=== PATIENT | female | born 1955 | race Caucasian/White ===

== ENCOUNTER 2017-09-18 11:48 | Observation (INO) | payer OTHER ==
[2017-09-18] VITALS (10 sets, daily range): BP systolic 111–162; BP diastolic 57–94; PULSE 54–100; RESP 16–20; TEMP 97.6–98.2; O2SAT 95–99
[~2017-09-18] VITALS: Ht 172.7 cm; Wt 110.0 kg
[~2017-09-18 11:48] MED LIST: OXYC-360 PO; Z.0.NO CURRENT MEDS
[2017-09-18] MEDS ORDERED: ASPIRIN 325 MG TAB PO ONE (12:15)
--- NOTE | 2017-09-18 12:17 | PD ---
HPI Chief Complaint: Numbness/Tingling Time Seen by Provider: 12:05 Travel History International Travel<30 days: No Contact w/Intl Traveler<30days: No Traveled to known affect area: No History of Present Illness HPI The patient was seen and examined in the presence of the nurse. This patient has been having intermittent spells of left upper chest tightness and discomfort for about one week. Symptoms come and go. Duration is about 15 minutes. She is currently chest pain-free. Severity is moderate. She denies personal history of cardiac disease. She had a spell of lightheadedness today while shopping at [employer]. There was no syncope. No vertigo or headache. Symptoms had no alleviating factors. No Exacerbating factors. She takes blood pressure medication and has family history of cardiac disease but no personal history. Never had stress testing. PFSH Past Medical History Cancer: No Cardiovascular Problems: No Diabetes: No Diminished Hearing: No Glaucoma: No Hepatitis: No Hiatal Hernia: No Hypertension: No Respiratory: No Immunizations Current: No Thyroid Disease: Yes ?: Not Menopausal: Yes Past Surgical History Section: Yes (X3) Gynecologic Surgery: Yes (C SECTION X 3) Oral Surgery: Yes ( TEETH EXTRACTED) Pacemaker: No Other Surgery: Yes Social History Alcohol Use: Yes (OCC WINE) Tobacco Use: No Substance Use: No Allergies-Medications (Allergen,Severity, Reaction): Coded Allergies: No Known Allergies (Verified , 09/18/17) Reported Meds & Prescriptions Reported Meds & Active Scripts Active Reported Lopressor (Metoprolol Tartrate) 50 Mg Tab 25 Mg PO BID Review of Systems General / Constitutional: No: Fever Eyes: No: Visual changes HENT: Positive: Lightheadedness, No: Headaches Cardiovascular: Positive: Chest Pain or Discomfort Respiratory: No: Shortness of Breath Gastrointestinal: No: Abdominal Pain Genitourinary: No: Dysuria Musculoskeletal: No: Pain Skin: No Rash Neurologic: Positive: Paresthesia, No: Weakness Psychiatric: No: Depression Endocrine: No: Polydipsia Hematologic/Lymphatic: No: Easy Bruising Physical Exam Narrative GENERAL: Well-nourished, well-developed patient in no apparent distress. SKIN: Focused skin assessment reveals no rash and nodules. Skin is Warm and dry. HEAD: Atraumatic. Normocephalic. EYES: Pupils equal and round. No scleral icterus. No injection or drainage. ENT: No nasal bleeding or discharge. Mucous membranes pink and moist. NECK: Trachea midline. No JVD. CARDIOVASCULAR: Regular rate and rhythm. No murmur appreciated. RESPIRATORY: No accessory muscle use. Clear to auscultation. Breath sounds equal bilaterally. GASTROINTESTINAL: Abdomen soft, non-tender, nondistended. Hepatic and splenic margins not palpable. MUSCULOSKELETAL: No obvious deformities. No clubbing. No cyanosis. No edema. NEUROLOGICAL: Awake and alert. No obvious cranial nerve deficits. Motor grossly within normal limits. Normal speech. PSYCHIATRIC: Appropriate mood and affect; insight and judgment normal. Data Data Last Documented VS Vital Signs Date Time Temp Pulse Resp B/P (MAP) Pulse Ox O2 Delivery O2 Flow Rate FiO2 09/18/17 13:25 76 20 111/57 (75) 97 Room Air 09/18/17 11:52 98.2 Orders Orders Electrocardiogram (09/18/17 12:14) Basic Metabolic Panel (Bmp) (09/18/17 12:14) Ckmb (Isoenzyme) Profile (09/18/17 12:14) Complete Blood Count With Diff (09/18/17 12:14) Magnesium (Mg) (09/18/17 12:14) Prothrombin Time / Inr (Pt) (09/18/17 12:14) Act Partial Throm Time (Ptt) (09/18/17 12:14) Troponin I (09/18/17 12:14) Chest, Single Ap (09/18/17 12:14) Ecg Monitoring (09/18/17 12:14) Bilateral Bp Monitoring (09/18/17 12:14) Iv Access Insert/Monitor (09/18/17 12:14) Oximetry (09/18/17 12:14) Aspirin (Aspirin) (09/18/17 12:15) Sodium Chloride 0.9% Flush (Ns Flush) (09/18/17 12:15) CKMB (09/18/17 12:28) CKMB% (09/18/17 12:28) Place In Observation (09/18/17 ) Admit Order (Ed Use Only) (09/18/17 13:54) Labs Laboratory Tests Test 09/18/17 12:28 White Blood Count 6.8 TH/MM3 Red Blood Count 4.76 MIL/MM3 Hemoglobin 13.6 GM/DL Hematocrit 41.3 % Mean Corpuscular Volume 86.7 FL Mean Corpuscular Hemoglobin 28.6 PG Mean Corpuscular Hemoglobin Concent 33.0 % Red Cell Distribution Width 12.7 % Platelet Count 198 TH/MM3 Mean Platelet Volume 9.4 FL Neutrophils (%) (Auto) 78.1 % Lymphocytes (%) (Auto) 15.1 % Monocytes (%) (Auto) 5.7 % Eosinophils (%) (Auto) 0.8 % Basophils (%) (Auto) 0.3 % Neutrophils # (Auto) 5.3 TH/MM3 Lymphocytes # (Auto) 1.0 TH/MM3 Monocytes # (Auto) 0.4 TH/MM3 Eosinophils # (Auto) 0.1 TH/MM3 Basophils # (Auto) 0.0 TH/MM3 CBC Comment DIFF FINAL Differential Comment Prothrombin Time 10.4 SEC Prothromb Time International Ratio 0.9 RATIO Activated Partial Thromboplast Time 29.4 SEC Blood Urea Nitrogen 16 MG/DL Creatinine 1.00 MG/DL Random Glucose 127 MG/DL Calcium Level 8.0 MG/DL Magnesium Level 2.2 MG/DL Sodium Level 138 MEQ/L Potassium Level 3.5 MEQ/L Chloride Level 106 MEQ/L Carbon Dioxide Level 20.8 MEQ/L Anion Gap 11 MEQ/L Estimat Glomerular Filtration Rate 56 ML/MIN Total Creatine Kinase 156 U/L Creatine Kinase MB 1.8 NG/ML Troponin I LESS THAN 0.02 NG/ML MDM Medical Decision Making Medical Screen Exam Complete: Yes Emergency Medical Condition: Yes Medical Record Reviewed: Yes Differential Diagnosis Differential diagnosis includes ME, angina, pericarditis, pleurisy, GERD, anxiety. Narrative Course I have reviewed the patient's electronic medical record. I saw this patient in the past for kidney stones here in the ER IV placed I reviewed the EKG which shows frequent ectopy but sinus rhythm and no acute ST elevation I reviewed the chest x-ray which shows mild perihilar infiltrates for some mild pulmonary vascular congestion Extended cardiac monitoring shows sinus rhythm with occasional PVCs CBC is normal Metabolic profile is normal CK is normal Troponin is normal Coagulation studies are normal I gave her an aspirin Patient is multiple risk factors for coronary disease. She is a typical pain for a week. She will be a 23 are observation on telemetry to evaluate for acute cardiac problem. I reviewed it with [facility] healthcare physician Dr. Chente rogers initially given that she is in trigeminy and had some other vague symptoms. He suggested chest pain center and I reviewed with the hospitalist who agrees to that. Diagnosis Primary Impression: Chest pain in adult Additional Impressions: Trigeminy Paresthesias Admitting Information Admitting Physician Requests: Manas Adams MD Sep 18, 2017 12:17
[2017-09-18 12:32] LABS: AUTOMATED NEUTROPHIL # 5.3 TH/MM3 (1.8-7.7); BASOPHIL % 0.3 % (0.0-2.0); EOSINOPHIL # 0.1 TH/MM3 (0-0.4); EOSINOPHIL % 0.8 % (0.0-4.0); HEMATOCRIT 41.3 % (35.0-46.0); HEMOGLOBIN 13.6 GM/DL (11.6-15.3); LYMPH % 15.1 % (9.0-44.0); MEAN CELL VOLUME 86.7 FL (80.0-100.0); MEAN CORPUSCULAR HEMOGLOBIN 28.6 PG (27.0-34.0); MEAN PLATELET VOLUME 9.4 FL (7.0-11.0); MONO % 5.7 % (0.0-8.0); MONOCYTE # 0.4 TH/MM3 (0-0.9); NEUT % 78.1 % (16.0-70.0); PLATELET COUNT 198 TH/MM3 (150-450); RED BLOOD COUNT 4.76 MIL/MM3 (4.00-5.30); RED CELL DISTRIBUTION WIDTH 12.7 % (11.6-17.2); WHITE BLOOD COUNT 6.8 TH/MM3 (4.0-11.0)
[2017-09-18] MEDS: SODIUM CHLORIDE 0.9% FLUSH 10 ML FLUSH IVF PRN (12:34)
[2017-09-18 12:41] LABS: CHLORIDE 106 MEQ/L (98-107); SODIUM (NA) 138 MEQ/L (136-145)
[2017-09-18 12:44] LABS: BICARBONATE 20.8 MEQ/L (21.0-32.0); BLOOD UREA NITROGEN 16 MG/DL (7-18); GLUCOSE,RANDOM 127 MG/DL (74-106); MAGNESIUM 2.2 MG/DL (1.5-2.5)
[2017-09-18 12:46] LABS: INTERNATIONAL NORMALIZED RATIO 0.9 RATIO; PROTHROMBIN TIME - PATIENT 10.4 SEC (9.8-11.6)
[2017-09-18] MEDS ORDERED: METO-309 PO (12:46)
[2017-09-18 12:47] LABS: GLOMERULAR FILTRATION RATE 56 ML/MIN (>89)
[2017-09-18 12:52] LABS: TROPONIN I LESS THAN 0.02 NG/ML (0.02-0.05)
--- NOTE | 2017-09-18 13:13 | RADRPT ---
EXAM DATE/TIME: 09/18/2017 12:58 [facility] COMPARISON: No previous studies available for comparison. INDICATIONS : Irregular heart rate, chest pain, cough, short of breath MEDICAL HISTORY : None. SURGICAL HISTORY : None. ENCOUNTER: Initial ACUITY: 1 day PAIN SCORE: 110 LOCATION: Bilateral chest FINDINGS: The heart is enlarged. Perihilar and bibasilar infiltrates are noted consistent with pulmonary vascu lar congestion versus pneumonia. Clinical correlation is recommended. CONCLUSION: 1. Perihilar and bibasilar infiltrates consistent with pulmonary vascular congestion versus pneumoni a. Clinical correlation is recommended. 2. Cardiomegaly. Migel Davalos MD on September 18, 2017 at 13:07 Board Certified Radiologist. This report was verified electronically.
[2017-09-18] MEDS ORDERED: SODIUM CHLOR 0.9% 1000 ML INJ 1,000 ML IV ONE (15:00)
--- NOTE | 2017-09-18 16:01 | HHI.HP ---
[facility] John Young MD Admission Diagnosis chest pain, trigeminy Diagnoses: Chief Complaint: chest tightness, lightheadedness Travel History International Travel<30 Days: No Contact w/Intl Traveler <30 Da: No Traveled to Known Affected Are: No History of Present Illness 63-year-old white female being admitted to chest pain center for atypical chest discomfort and lightheadedness. Patient was in her usual state of health until about 2 days ago when she became nauseated. Her nausea went away and today recurred with some substantial lightheadedness and chest tightness and diffuse tingling over her bilateral arms and legs. Her says that she look like she was hunched over forward in order to be in a more relieving position. She had some intermittent diarrhea as well. He denies seeing any facial droop or slurred speech and her. Denies any abdominal pain. She reports having some intermittent chest tightness throughout the week, was unable to identify any exacerbating or alleviating factors. She reports taking all of her meds. Patient does report having a negative stress test within the last 2 years. Review of Systems Except as stated in HPI: all other systems reviewed are Neg Past Family Social History Past Medical History Hypertension Dysrhythmias Allergies: Coded Allergies: No Known Allergies (Verified , 09/18/17) Family History Heart attack and stroke in father Social History Denies smoking, illicit drug use, reports being a very light social drinker a few times a week Physical Exam Vital Signs Vital Signs Date Time Temp Pulse Resp B/P (MAP) Pulse Ox O2 Delivery O2 Flow Rate FiO2 09/18/17 15:00 97.8 81 18 129/69 (89) 95 09/18/17 14:45 78 20 145/67 (93) 09/18/17 14:12 75 16 147/66 (93) 96 Room Air 09/18/17 13:25 76 20 111/57 (75) 97 Room Air 09/18/17 12:43 97 20 119/63 (81) 127/64 (85) 09/18/17 12:20 98 20 112/72 (85) 99 09/18/17 12:10 99 Room Air 09/18/17 12:10 Room Air 09/18/17 11:52 98.2 100 20 162/94 (116) 98 Physical Exam VS: Afebrile GENERAL: Lying in bed, awake, overweight female, no acute distress SKIN: Warm and dry. EYES: No scleral icterus. No injection or drainage. ENT: No nasal bleeding or discharge. Mucous membranes pink and moist. CARDIOVASCULAR: Regular rate and rhythm. no murmurs RESPIRATORY: No accessory muscle use. Clear to auscultation. Breath sounds equal bilaterally. GASTROINTESTINAL: Abdomen soft, non-tender, nondistended. Hepatic and splenic margins not palpable. Extremities: No clubbing, cyanosis, or edema. No obvious deformities. MUSCULOSKELETAL: Extremities without clubbing, cyanosis, or edema. No obvious deformities. grossly intact ROM with 5/5 strength in upper and lower extremities proximally. No chest wall tenderness to palpation NEUROLOGICAL: Awake and alert. No obvious cranial nerve deficits. No facial droop nor slurred speech noted. PSYCHIATRIC: Appropriate mood and affect; insight and judgment normal. Laboratory Laboratory Tests Test 09/18/17 12:28 09/18/17 12:30 09/18/17 15:18 White Blood Count 6.8 Red Blood Count 4.76 Hemoglobin 13.6 Hematocrit 41.3 Mean Corpuscular Volume 86.7 Mean Corpuscular Hemoglobin 28.6 Mean Corpuscular Hemoglobin Concent 33.0 Red Cell Distribution Width 12.7 Platelet Count 198 Mean Platelet Volume 9.4 Neutrophils (%) (Auto) 78.1 Lymphocytes (%) (Auto) 15.1 Monocytes (%) (Auto) 5.7 Eosinophils (%) (Auto) 0.8 Basophils (%) (Auto) 0.3 Neutrophils # (Auto) 5.3 Lymphocytes # (Auto) 1.0 Monocytes # (Auto) 0.4 Eosinophils # (Auto) 0.1 Basophils # (Auto) 0.0 CBC Comment DIFF FINAL Differential Comment Prothrombin Time 10.4 Prothromb Time International Ratio 0.9 Activated Partial Thromboplast Time 29.4 Blood Urea Nitrogen 16 Creatinine 1.00 Random Glucose 127 Calcium Level 8.0 Magnesium Level 2.2 Sodium Level 138 Potassium Level 3.5 Chloride Level 106 Carbon Dioxide Level 20.8 Anion Gap 11 Estimat Glomerular Filtration Rate 56 Total Creatine Kinase 156 Creatine Kinase MB 1.8 Troponin I LESS THAN 0.02 LESS THAN 0.02 B-Type Natriuretic Peptide 162 Result Diagram: 09/18/17 1228 09/18/17 1228 Caprini VTE Risk Assessment Caprini VTE Risk Assessment: Mod/High Risk (score >= 2) Caprini Risk Assessment Model Point Value = 1 Point Value = 2 Point Value = 3 Point Value = 5 Age 41-60 Minor surgery BMI > 25 kg/m2 Swollen legs Varicose veins or History of unexplained or recurrent spontaneous Oral contraceptives or hormone replacement Sepsis (< 1 month) Serious lung disease, including pneumonia (< 1 month) Abnormal pulmonary function Acute myocardial infarction Congestive heart failure (< 1 month) History of inflammatory bowel disease Medical patient at bed rest Age 61-74 Arthroscopic surgery Major open surgery (> 45 min) Laparoscopic surgery (> 45 min) Malignancy Confined to bed (> 72 hours) Immobilizing plaster cast Central venous access Age >= 75 History of VTE Family history of VTE Factor V Leiden Prothrombin [id number] Lupus anticoagulant Anticardiolipin antibodies Elevated serum homocysteine Heparin-induced thrombocytopenia Other congenital or acquired thrombophilia Stroke (< 1 month) Elective arthroplasty Hip, pelvis, or leg fracture Acute spinal cord injury (< 1 month) Prophylaxis Regimen Total Risk Factor Score Risk Level Prophylaxis Regimen 0-1 Low Early ambulation 2 Moderate Order ONE of the following: *Sequential Compression Device (SCD) *Heparin 5000 units SQ BID 3-4 Higher Order ONE of the following medications: *Heparin 5000 units SQ TID *Enoxaparin/Lovenox 40 mg SQ daily (WT < 150 kg, CrCl > 30 mL/min) *Enoxaparin/Lovenox 30 mg SQ daily (WT < 150 kg, CrCl > 10-29 mL/min) *Enoxaparin/Lovenox 30 mg SQ BID (WT < 150 kg, CrCl > 30 mL/min) AND/OR *Sequential Compression Device (SCD) 5 or more Highest Order ONE of the following medications: *Heparin 5000 units SQ TID (Preferred with Epidurals) *Enoxaparin/Lovenox 40 mg SQ daily (WT < 150 kg, CrCl > 30 mL/min) *Enoxaparin/Lovenox 30 mg SQ daily (WT < 150 kg, CrCl > 10-29 mL/min) *Enoxaparin/Lovenox 30 mg SQ BID (WT < 150 kg, CrCl > 30 mL/min) AND *Sequential Compression Device (SCD) Assessment and Plan Problem List: (1) Chest tightness ICD Code: R07.89 - Other chest pain (2) Atypical angina ICD Code: I20.8 - Other forms of angina pectoris Assessment and Plan Clinically stable upon admission possible atypical angina - trend troponins - EKG independently reviewed, no st segment changes noted w/ ischemia, independently review CXR which may falsely reflect cardiomegaly given AP shot - telemetry - NPO after midnight, will consider stress test in AM if symptoms recur or worsen - aspirin, Lipitor - BNP is negative transient subjective lightheadedness - orthostatic VS - telemetry - NS bolus x 1 Berry Cline MD Sep 18, 2017 16:01
[2017-09-18] MEDS ORDERED: ATORVASTATIN 40 MG TAB PO ONE (16:45)
[2017-09-18] MEDS: METOPROLOL TARTRATE 25 MG TAB PO SCH (21:27)
[2017-09-19 00:25] VITALS: BP 107/60; PULSE 57; RESP 16; TEMP 98.8; O2SAT 97
[2017-09-19 04:54] VITALS: BP 110/63; PULSE 60; RESP 18; TEMP 98; O2SAT 98
[2017-09-19 05:28] VITALS: BP 122/79; PULSE 63; RESP 16; TEMP 97.9; O2SAT 98
[2017-09-19 08:00] VITALS: BP 104/77; PULSE 61; RESP 14; TEMP 97.3; O2SAT 97
[2017-09-19 08:05] VITALS: PULSE 58
[2017-09-19] MEDS: METOPROLOL TARTRATE 25 MG TAB PO SCH (08:44)
[2017-09-19] MEDS ORDERED: ASPIRIN 325 MG TAB PO SCH (09:00)
[2017-09-19] MEDS: SODIUM CHLORIDE 0.9% FLUSH 10 ML FLUSH IVF PRN (09:24)
[2017-09-19 09:34] LABS: CHOLESTEROL/ HDL RATIO 2.86 RATIO; HDL CHOLESTEROL 38.7 MG/DL (40.0-60.0)
[2017-09-19] MEDS ORDERED: REGADENOSON INJ 0.4 MG/5 ML SYR IV ONE (11:35)
--- NOTE | 2017-09-19 12:46 | RADRPT ---
EXAM DATE/TIME: 09/19/2017 11:23 [facility] COMPARISON: No previous studies available for comparison. INDICATIONS : Substernal chest pain with dizziness and nausea. Angina. Abnormal EKG. DOSE: 35 mCi Tc99m Myoview at stress. 11 mCi Tc99m Myoview at rest. 0.4 mg Lexiscan STRESS SYMPTOMS: Asymptomatic. EJECTION FRACTION: 52% MEDICAL HISTORY : Hypertension. SURGICAL HISTORY : section. Right shoulder and right knee. ENCOUNTER: Initial ACUITY: 1 day PAIN SCALE: 3/10 LOCATION: Substernal chest TECHNIQUE: The patient underwent pharmacologic stress with infusion of prescribed dose. Continuous ECG tracing was monitored during stress. Gated SPECT imaging was performed after stress and conventional SPECT i maging was performed at rest. The examination was performed on a SPECT/CT scanner, both attenuation and non-corrected datasets were reviewed. FINDINGS: There is the fixed defect in the lateral wall. There is no redistribution to suggest stress-induced ischemia. Ejection fraction 52% without significant hypokinesis lateral wall. CONCLUSION: Negative for stress-induced ischemia. Correlation is suggested with EKG findings. RISK CATEGORY: Low (<1% Annual Mortality Rate) Joel Handley MD FACR on September 19, 2017 at 12:43 Board Certified Radiologist. This report was verified electronically.
[2017-09-19 13:00] VITALS: BP 121/74; PULSE 63; RESP 14; TEMP 97.1; O2SAT 96
[2017-09-19] MEDS ORDERED: ZOLO25TA PO (13:05)
[2017-09-19] MEDS ORDERED: VIST25CA PO (13:06)
--- NOTE | 2017-09-19 13:06 | HHI.DCPOC ---
Discharge Care Plan Diagnosis: (1) Panic attack (2) Anxiety attack (3) Anxiety Goals to Promote Your Health * To prevent worsening of your condition and complications * To maintain your health at the optimal level Directions to Meet Your Goals Take your medications as prescribed Follow your dietary instruction Follow activity as directed Keep your appointments as scheduled Take your immunizations and boosters as scheduled If your symptoms worsen call your PCP, if no PCP go to Urgent Care Center or Emergency Room Smoking is Dangerous to Your Health. Avoid second hand smoke Call the 24-hour hour crisis hotline for domestic abuse at Berry Cline MD Sep 19, 2017 13:06
--- NOTE | 2017-09-19 13:06 | HHI.DCPOC ---
Discharge Care Plan Diagnosis: (1) Panic attack (2) Anxiety attack (3) Anxiety Goals to Promote Your Health * To prevent worsening of your condition and complications * To maintain your health at the optimal level Directions to Meet Your Goals Take your medications as prescribed Follow your dietary instruction Follow activity as directed Keep your appointments as scheduled Take your immunizations and boosters as scheduled If your symptoms worsen call your PCP, if no PCP go to Urgent Care Center or Emergency Room Smoking is Dangerous to Your Health. Avoid second hand smoke Call the 24-hour hour crisis hotline for domestic abuse at Berry Cline MD Sep 19, 2017 13:06
--- NOTE | 2017-09-19 13:06 | HHI.DCPOC ---
Discharge Care Plan Diagnosis: (1) Panic attack (2) Anxiety attack (3) Anxiety Goals to Promote Your Health * To prevent worsening of your condition and complications * To maintain your health at the optimal level Directions to Meet Your Goals Take your medications as prescribed Follow your dietary instruction Follow activity as directed Keep your appointments as scheduled Take your immunizations and boosters as scheduled If your symptoms worsen call your PCP, if no PCP go to Urgent Care Center or Emergency Room Smoking is Dangerous to Your Health. Avoid second hand smoke Call the 24-hour hour crisis hotline for domestic abuse at Berry Cline MD Sep 19, 2017 13:06
--- NOTE | 2017-09-19 13:14 | HHI.PR ---
Subjective Remarks Patient reports having another episode of mild tingling on both arms and both legs that transiently resolved. Reports having some mild nausea. Patient denies seeing any facial droops on her face this morning or any focal numbness or tingling. Objective Vital Signs Date Time Temp Pulse Resp B/P (MAP) Pulse Ox O2 Delivery O2 Flow Rate FiO2 09/19/17 08:05 58 09/19/17 08:00 97.3 61 14 104/77 (86) 97 09/19/17 05:28 97.9 63 16 122/79 (93) 98 09/19/17 04:54 98.0 60 18 110/63 (79) 98 09/19/17 00:25 98.8 57 16 107/60 (76) 97 09/18/17 21:44 98.1 84 18 120/80 (93) 98 09/18/17 20:00 66 09/18/17 16:00 124/73 (90) 145/87 (106) 145/63 (90) 09/18/17 16:00 97.6 54 20 124/73 (90) 97 09/18/17 15:00 97.8 81 18 129/69 (89) 95 09/18/17 14:45 78 20 145/67 (93) 09/18/17 14:12 75 16 147/66 (93) 96 Room Air 09/18/17 13:25 76 20 111/57 (75) 97 Room Air I/O 09/18/17 09/18/17 09/18/17 09/19/17 09/19/17 09/19/17 07:00 15:00 23:00 07:00 15:00 23:00 Intake Total 1000 ml Balance 1000 ml Intake IV Total 1000 ml # Voids 1 4 Result Diagram: 09/18/17 1228 09/18/17 1228 Objective Remarks Unlabored breathing, lungs are clear bilaterally, heart rate is regular, regular rhythm No facial droop, no slurred speech She was seen getting up on her own with a good balance and a good steady gait. A/P Assessment and Plan Mimi scan is negative, currently asymptomatic. Had a thorough discussion with the patient that her symptoms are most likely from anxiety given that her heart appears to be in good condition. I explained to her that her arrhythmia is a trigeminy and that this is a benign variant of a heart rhythm. I also explained to her that I spoke to Dr. rogers and that he also noted these abnormalities on a Holter report that she had some time within the last year to year and half. I explained to her that her orthostatic vital signs showed no signs of orthostatic hypertension and that her heart rhythm otherwise was not the cause of her symptoms. She had no signs or symptoms of fever or obvious infection while inpatient. Patient has verbalized understanding and is willing to try anxiety medications upon discharge. Patient has met maximum benefit from hospitalization and is clinically stable for discharge. Berry Cline MD Sep 19, 2017 13:14
--- NOTE | 2017-09-19 13:30 | EKG ---
Date Performed: 09/18/2017 Time Performed: 12:21:28 PTAGE: 62 years EKG: Sinus rhythm WITH FREQUENT SUPRAVENTRICULAR PREMATURE COMPLEXES LOW QRS VOLTAGE IN PRECORDIAL LEADS MINIMAL ST DE PRESSION PROLONGED QT INTERVAL ABNORMAL ECG PREVIOUS TRACING : 10/08/2009 09.08 Compared to prior tracing no significant change DOCTOR: Jhony Gallagher Interpretating Date/Time 09/19/2017 13:27:30
--- NOTE | 2017-09-19 15:37 | TR ---
Date Performed: 09/19/2017 Time Performed: 11:47:03 DOCTOR: Jhony Gallagher DRUG LIST: CLINICAL HISTORY: CHEST PAIN REASON FOR TEST: Chest pain REASON FOR ENDING: OBSERVATION: CONCLUSION: Lexiscan stress test was performed under standard four minute protocol. Radionuclid e was injected one minute prior to ending the test. No electrocardiographic abormalities were present to suggest ischemia. Nuclear imaging and interpretation are pending. COMMENTS:
[2017-09-19] MEDS ORDERED: ATORVASTATIN 40 MG TAB PO SCH (21:00)
== END 2017-09-19 14:01 | disposition home or self-care (01) ==
LOC: PHED 11:48 → PHEDA 13:56 → PH3A 14:52
PROVIDERS: ADMIT Hospitalist; ATTEND Hospitalist
DX: F41.0 Panic disorder [episodic paroxysmal anxiety] (principal); F41.1 Generalized anxiety disorder; R07.89 Other chest pain; I10 Essential (primary) hypertension; R00.8 Other abnormalities of heart beat; R94.31 Abnormal electrocardiogram [ECG] [EKG]; R91.8 Other nonspecific abnormal finding of lung field; R20.0 Anesthesia of skin; Z82.49 Family history of ischemic heart disease and other diseases of the circulatory system
CPT/HCPCS: 71010; 78452; 80048; 80061; 82550; 82552; 83735; 83880; 84145; 84484; 85025; 85610; 85730; 93005; 93017; 96360; 99285; A9502; G0378; J2785; J7030

== ENCOUNTER 2017-10-23 10:03 | Emergency (ER) | payer OTHER ==
[~2017-10-23] VITALS: Ht 172.7 cm; Wt 105.0 kg
[~2017-10-23 10:03] MED LIST changes: +METO-309 PO; -OXYC-360 PO; +VIST25CA PO; -Z.0.NO CURRENT MEDS; +ZOLO25TA PO
[2017-10-23 10:04] VITALS: BP 160/84; PULSE 73; RESP 16; TEMP 99; O2SAT 96
[2017-10-23] MEDS ORDERED: LOPERAMIDE HCL 2 MG CAP PO ONE (11:00)
[2017-10-23] MEDS ORDERED: SODIUM CHLOR 0.9% 1000 ML INJ 1,000 ML IV ONE (11:00)
--- NOTE | 2017-10-23 11:08 | RADRPT ---
EXAM DATE/TIME: 10/23/2017 11:00 [facility] COMPARISON: CHEST SINGLE AP, September 18, 2017, 12:58. INDICATIONS : Dizziness. MEDICAL HISTORY : None. SURGICAL HISTORY : None. ENCOUNTER: Initial ACUITY: 2 days PAIN SCORE: 0/10 LOCATION: Bilateral chest FINDINGS: A single view of the chest demonstrates the lungs to be symmetrically aerated without evidence of mas s, infiltrate or effusion. The cardiomediastinal contours are unremarkable. Osseous structures are intact. CONCLUSION: No acute disease. Delano Brenner MD on October 23, 2017 at 11:05 Board Certified Radiologist. This report was verified electronically.
[2017-10-23 11:11] LABS: AUTOMATED NEUTROPHIL # 2.8 TH/MM3 (1.8-7.7); BASOPHIL % 0.7 % (0.0-2.0); EOSINOPHIL % 0.6 % (0.0-4.0); HEMATOCRIT 41.6 % (35.0-46.0); HEMO FLAGS DIFF FINAL; LYMPH % 17.6 % (9.0-44.0); LYMPHOCYTE # 0.7 TH/MM3 (1.0-4.8); MEAN CORPUSCULAR HEMOGLOBIN 29.6 PG (27.0-34.0); MEAN CORPUSCULAR HGB CONC 33.6 % (32.0-36.0); MONO % 9.7 % (0.0-8.0); NEUT % 71.4 % (16.0-70.0); PLATELET COUNT 165 TH/MM3 (150-450); RED BLOOD COUNT 4.72 MIL/MM3 (4.00-5.30); RED CELL DISTRIBUTION WIDTH 13.7 % (11.6-17.2); WHITE BLOOD COUNT 3.9 TH/MM3 (4.0-11.0)
--- NOTE | 2017-10-23 11:18 | PD ---
HPI Chief Complaint: Dizziness Time Seen by Provider: 10:39 Travel History International Travel<30 days: No Contact w/Intl Traveler<30days: No Traveled to known affect area: No History of Present Illness HPI This 62 year-old woman presents to the emergency department complaining of multiple complaints. She states that for the past month or so she's had a cough. She's recently seen in the [facility] with chest pain and not feeling right with lightheadedness. She had a negative workup including a negative stress test. She states despite that she's had continued intermittent episodes of lightheadedness and flushed feeling as well as just generally not feeling "right". She's had this persisting cough as well. She followed up with Dr. Young, her primary physician, who ordered a chest x-ray and stated that she had some fluid on her lungs. She did a course of diuretics as well as some antibiotics which she states didn't help. She then did a second course of diuretic antibiotics which didn't help, and now she has frequent watery diarrhea. She states she's had previous episodes in the past or diagnosed as anxiety, she states that she was told to [facility] in her symptoms were also likely from anxiety. She takes an SSRI now for anxiety. History Past Medical History Narrative Medical Hypertension Anxiety Tetanus Vaccination: > 5 Years Influenza Vaccination: No Menopausal: Yes : 3 Social History Alcohol Use: Yes (OCC WINE) Tobacco Use: No Allergies-Medications (Allergen,Severity, Reaction): Coded Allergies: No Known Allergies (Verified Adverse Reaction, Unknown, 10/23/17) Reported Meds & Prescriptions Reported Meds & Active Scripts Active Vistaril (Hydroxyzine Pamoate) 25 Mg Cap 25 Mg PO Q6H PRN Zoloft (Sertraline HCl) 25 Mg Tab 25 Mg PO DAILY Reported Lopressor (Metoprolol Tartrate) 50 Mg Tab 25 Mg PO BID Review of Systems Except as stated in HPI: all other systems reviewed are Neg Physical Exam Narrative GENERAL: Well-appearing 62 year-old woman, no acute distress. SKIN: Focused skin assessment warm/dry. HEAD: Atraumatic. Normocephalic. CARDIOVASCULAR: Regular rate and rhythm. No murmur appreciated. RESPIRATORY: No accessory muscle use. Clear to auscultation. Breath sounds equal bilaterally. GASTROINTESTINAL: Abdomen soft, non-tender, nondistended. Hepatic and splenic margins not palpable. MUSCULOSKELETAL: No obvious deformities. No edema. NEUROLOGICAL: Awake and alert. No obvious cranial nerve deficits. Motor grossly within normal limits. Normal speech. PSYCHIATRIC: Appropriate mood and affect; insight and judgment normal. Data Data Last Documented VS Vital Signs Date Time Temp Pulse Resp B/P (MAP) Pulse Ox O2 Delivery O2 Flow Rate FiO2 10/23/17 10:27 76 16 98 Room Air 10/23/17 10:04 99.0 160/84 (109) Orders Orders Complete Blood Count With Diff (10/23/17 10:52) Comprehensive Metabolic Panel (10/23/17 10:52) Iv Access Insert/Monitor (10/23/17 10:52) Chest, Single Ap (10/23/17 ) Electrocardiogram (10/23/17 ) Sodium Chlor 0.9% 1000 Ml Inj (Ns 1000 M (10/23/17 11:00) Loperamide (Imodium) (10/23/17 11:00) Labs Laboratory Tests Test 10/23/17 11:00 White Blood Count 3.9 TH/MM3 Red Blood Count 4.72 MIL/MM3 Hemoglobin 14.0 GM/DL Hematocrit 41.6 % Mean Corpuscular Volume 88.0 FL Mean Corpuscular Hemoglobin 29.6 PG Mean Corpuscular Hemoglobin Concent 33.6 % Red Cell Distribution Width 13.7 % Platelet Count 165 TH/MM3 Mean Platelet Volume 9.1 FL Neutrophils (%) (Auto) 71.4 % Lymphocytes (%) (Auto) 17.6 % Monocytes (%) (Auto) 9.7 % Eosinophils (%) (Auto) 0.6 % Basophils (%) (Auto) 0.7 % Neutrophils # (Auto) 2.8 TH/MM3 Lymphocytes # (Auto) 0.7 TH/MM3 Monocytes # (Auto) 0.4 TH/MM3 Eosinophils # (Auto) 0.0 TH/MM3 Basophils # (Auto) 0.0 TH/MM3 CBC Comment DIFF FINAL Differential Comment Blood Urea Nitrogen 12 MG/DL Creatinine 0.90 MG/DL Random Glucose 103 MG/DL Total Protein 6.9 GM/DL Albumin 3.7 GM/DL Calcium Level 8.3 MG/DL Alkaline Phosphatase 41 U/L Aspartate Amino Transf (AST/SGOT) 12 U/L Alanine Aminotransferase (ALT/SGPT) 22 U/L Total Bilirubin 0.4 MG/DL Sodium Level 141 MEQ/L Potassium Level 4.0 MEQ/L Chloride Level 110 MEQ/L Carbon Dioxide Level 25.8 MEQ/L Anion Gap 5 MEQ/L Estimat Glomerular Filtration Rate 63 ML/MIN [facility] Medical Decision Making Medical Screen Exam Complete: Yes Emergency Medical Condition: Yes Interpretation(s) My review of EKG: Sinus bradycardia, normal axis, normal intervals, slightly diminished voltage throughout, no definite evidence of acute ischemia. Chest x-ray: No acute disease. LABS: CBC is unremarkable. CMP Differential Diagnosis Anxiety, cough, postnasal drip, GERD or reflux, adverse effect of medication, other Narrative Course Medical decision making This is a 62 year-old woman who presents to the emergency department complaining of bizarre flushing lightheaded symptoms. She recently had a loop recorder but doesn't have those results. She had a stress test that was negative. Symptoms certainly seem possibly consistent with anxiety. She has diarrhea now which is likely related to antibiotic use. She states she does have some occasional GERD, tongue clear this is causing her subacute cough or not. She is worried about the lightheaded symptoms in the diarrhea. We'll check electrolytes and a chest x-ray to see if there is any recurrence of her pulmonary edema. Otherwise outpatient follow-up with her primary physician. Diagnosis Primary Impression: Anxiety Additional Impression: Antibiotic-associated diarrhea Patient Instructions: General Instructions Additional Instructions: Follow-up with Dr. Young. Return to the emergency department for any new or worsening symptoms. Take loperamide/Imodium [id number] as needed for diarrhea. Drink plenty of fluids to stay well-hydrated. Med/Other Pt SpecificInfo: No Change to Meds Disposition: 01 DISCHARGE HOME Condition: Stable Juan Hernandez MD Oct 23, 2017 11:18
[2017-10-23 11:31] LABS: ALT (GPT) 22 U/L (10-53); ANION GAP 5 MEQ/L (5-15); AST (GOT) 12 U/L (15-37); BICARBONATE 25.8 MEQ/L (21.0-32.0); BLOOD UREA NITROGEN 12 MG/DL (7-18); CHLORIDE 110 MEQ/L (98-107); GLOMERULAR FILTRATION RATE 63 ML/MIN (>89); SODIUM (NA) 141 MEQ/L (136-145)
[2017-10-23 11:33] LABS: ALKALINE PHOSPHATASE 41 U/L (45-117); TOTAL BILIRUBIN ADULT 0.4 MG/DL (0.2-1.0)
[2017-10-23 12:00] VITALS: BP 124/85; TEMP 97.8
--- NOTE | 2017-10-23 22:03 | EKG ---
Date Performed: 10/23/2017 Time Performed: 11:08:02 PTAGE: 62 years EKG: SINUS BRADYCARDIA LOW QRS VOLTAGE IN PRECORDIAL LEADS POSSIBLE ANTERIOR MYOCARDIAL INFARCTI ON ABNORMAL ECG PREVIOUS TRACING : 09/18/2017 12.21 Compared to the previous tracing sinus bradycardia is new DOCTOR: Andrei Daily Interpretating Date/Time 10/23/2017 22:01:46
== END 2017-10-23 12:05 | disposition home or self-care (01) ==
LOC: NEPE 10:03
DX: F41.9 Anxiety disorder, unspecified (principal); K52.1 Toxic gastroenteritis and colitis; T36.95XA Adverse effect of unspecified systemic antibiotic, initial encounter; R42 Dizziness and giddiness; K21.9 Gastro-esophageal reflux disease without esophagitis; R00.1 Bradycardia, unspecified; I10 Essential (primary) hypertension; Z79.899 Other long term (current) drug therapy
CPT/HCPCS: 71010; 80053; 85025; 93005; 96360; 99285; J7030